=== PATIENT | male | born 1965 | race Caucasian/White ===

== ENCOUNTER 2023-11-09 00:35 | Emergency (ER) | payer BC, SELFPAY ==
[2023-11-09 00:41] VITALS: BP 138/82
[2023-11-09 01:28] LABS: % Basophils 1.5 % (0-2); % Immature Granulocytes 0.5 % (0-0.5); % Lymphocytes 35.8 % (20.5-51.1); % Monocytes 9.8 % (1.7-9.3); % Neutrophils 50.4 % (42.2-75.2); Absolute Basophils 0.1 10^3/uL (0-0.2); Absolute Eosinophils 0.1 10^3/uL (0-0.7); Absolute Lymphocytes 1.4 10^3/uL (1.2-3.4); Absolute Monocytes 0.4 10^3/uL (0.1-0.6); Hematocrit 38.3 % (39.0-52.0); Hemoglobin 13.9 g/dL (13.0-18.0); Mean Corp Hgb Conc. 36.3 g/dL (33.0-37.0); Mean Corpuscular Hgb 31.4 pg (27.0-31.0); Mean Corpuscular Volume 86.7 fL (80.0-94.0); Mean Platelet Volume 9.1 fL (7.4-10.4); Nucleated Red Blood Cells % 0 % (-); Platelet Count 275 10^3/uL (130-400); Red Blood Cell Count 4.42 10^6/uL (4.70-6.10); Red Cell Dist. Width 11.9 % (11.5-14.5)
[2023-11-09 01:29] VITALS: BP 130/82
--- NOTE | 2023-11-09 01:39 | ED.GENMED ---
History of Present Illness
General
Chief Complaint: Breathing Problem
Source: patient and spouse
Time Seen by Provider: 11/09/23 00:53
Travel History
Have you had any contact with someone who has COVID-19?: No
Do you have any symptoms of coronavirus? Fever > 100 degrees, chills, cough, shortness of breath, sore throat, loss of taste or smell, muscle aches, or headache?: No
History of Present Illness
History of Present Illness:
Patient presents to ED after waking up this morning with chest tightness and shortness of breath, along with 'irregular heartbeat'. Of note, patient has had shortness of breath with exertion and chest tightness, along with irregular heartbeat over
the past 6 weeks. Patient has been evaluated by his primary care physician, and has echocardiogram as well as cardiology consultation scheduled for this upcoming week. Denies fever or chills. Denies diaphoresis. Denies nausea or vomiting.
Denies dizziness. Denies recent travel or surgery. Denies back pain. Denies leg pain or swelling. Patient reports having had cardiac catheterization 20 years ago for similar complaint, which was normal. Patient has not had recurrent symptoms
until recently. Denies smoke drinking alcohol. There is family history of early heart disease.
Past History
Past History
ED Past Medical History: None and Other (Retention, previous DVT)
ED Past Surgical History: None
Social History
Tobacco: Former smoker
Alcohol: None
Family History
Family History: Other (Grandfather with an ND at age 50 )
Review of Systems
Review of Systems
Allergies reviewed?: Yes
All Other Systems: ROS reviewed and negative except as documented in HPI and ROS
Constitutional: Reports no symptoms
EENT: Reports no symptoms
Respiratory: Reports trouble breathing
Cardiac: Reports chest pain
ABD/GI: Reports no symptoms
: Reports no symptoms
Musculoskeletal: Reports no symptoms
Skin: Reports no symptoms
Neurological: Reports no symptoms
Phy Exam
Physical Exam
Physical Exam:
Physical Exam
General: no apparent distress, not acutely ill. afebrile
Head: nc/at. eomi
Neck: supple. no meningeal signs.
Heart: s1/s2 regular rate and rhythm, no murmur. equal radial pulses.
Lungs: no acute respiratory distress. clear bilaterally
Abdomen: normal bowel sounds. not tender.
Neuro: alert and oriented. no focal neurological deficits
Skin: no rash
Psychiatric: well kept. interactive and cooperative
Extremities: no edema. no calf tenderness.
Scores
Heart Failure Risk
Heart Failure Risk Score: Not Applicable
Heart Score for Chest Pain Patients
STEMI patient?: No
History: Slightly or Non-Suspicious
ECG: Normal
Age: >45 - <65 years
Risk Factors: 1 or 2 Risk Factors
Troponin: </= Normal Limit
Heart Score for Chest Pain Patients: 2
Heart Score Risk: 2.5% MACE over next 6 weeks
Course
Orders/Labs/Results
Orders:
Orders
11/09/23 00:44
EKG [Electrocardiogram (*1)] Urgent
Reason for Study: Shortness of Breath
EKG- Treatment ONCE
11/09/23 01:20
Complete Blood Count/With Diff Urgent
Comprehensive Metabolic Panel Urgent
D-Dimer Urgent
Magnesium Urgent
TSH Urgent
Troponin I Urgent
11/09/23 02:42
EKG- Treatment ONCE
11/09/23 04:30
Electrocardiogram (*1) Urgent
Reason for Study: Chest Pain
11/09/23 04:38
Troponin I Urgent
Abnormal Lab Results
11/09/23
01:20
WBC 4.0 L 10^3/uL
(4.8-10.8)
RBC 4.42 L 10^6/uL
(4.70-6.10)
Hct 38.3 L %
(39.0-52.0)
MCH 31.4 H pg
(27.0-31.0)
Monocytes % 9.8 H %
(1.7-9.3)
Glucose 182 H mg/dl
(70-99)
11/09/23 01:20
11/09/23 01:20
Vital Signs
Initial and Last Documented VS:
Initial Vital Signs
Temp Pulse Resp BP Pulse Ox
99.3 F 83 16 138/82 95
11/09/23 00:41 11/09/23 00:41 11/09/23 00:41 11/09/23 00:41 11/09/23 00:41
Last Documented Vital Signs
Temp Pulse Resp BP Pulse Ox
99.3 F 76 17 120/79 97
11/09/23 00:41 11/09/23 05:45 11/09/23 05:45 11/09/23 05:00 11/09/23 05:45
MDM/Problems Addressed
MDM/Problems Addressed:
Patient with an unremarkable workup in ED, including blood work, D-dimer, and EKG. Patient remains asymptomatic during observation. Will repeat troponin and EKG.
If negative, patient will be discharged home and follow-up with paper winder, as scheduled later this week.
*EKG
Interpreted by ED Provider?: Yes
EKG Intrepretation Date: 11/09/23
Heart Rate: 77
Rate: normal
Rhythm: sinus
[place]: normal axis
Interval: normal interval
*Critical Care Note
Total Time (30-74mins, 75-104mins- exclusive of procedures): Not Applicable
ED Attending Note
-
Portions of this chart may have been created with voice recognition software.� Occasional wrong word or��sound alike� substitutions may have occurred due to the inherent limitations of voice recognition software.
Discharge Plan
Departure
Patient Disposition: Home (Routine Discharge)
Date of Disposition: 11/09/23
Time of Disposition: 05:39
Patient with high blood pressure during this ER visit?: Yes
Discharge Problem:
Chest pain
Instructions: Chest Pain (DC)
Prescriptions:
No Action
nebivolol [Bystolic] 5 MG tablet
5 mg PO DAILY
Referrals:
Bimal Dunaway DO [Active] -
Florinda Sanchez CRNP [Family Provider] -
Activity Restrictions/Additional Instructions:
As discussed, please follow-up with referred paper winder, as already scheduled on Saturday for reevaluation. Please return to ED with worsening symptoms.
Interventions
Interventions:
*Risk Screen - Suicide Last Done: 11/09/23 00:41
*General Assessment Last Done: 11/09/23 00:41
*Neglect/Abuse Screening Last Done: 11/09/23 00:41
ED- Fall Risk Assessment Last Done: 11/09/23 01:23
*Nursing Disposition Last Done: 11/09/23 05:55
ED- Cardiac Assessment Last Done: 11/09/23 01:23
ED- Pulmonary Assessment Last Done: 11/09/23 01:23
Discharge Date and Time
Discharge Date/Time: 11/09/23 05:55
Print Language: ITALIAN
[2023-11-09 01:49] LABS: D-Dimer 0.43 ug/mlFEU (0.00-0.50)
[2023-11-09 01:56] LABS: ALT (SGPT) 21 U/L (0-50); AST (SGOT) 36 U/L (17-59); Albumin 4.6 g/dl (3.5-5.0); Alkaline Phosphatase 66 U/L (38-126); Blood Urea Nitrogen 14 mg/dl (9-20); Calcium 9.6 mg/dl (8.4-10.2); Carbon Dioxide 24 mmol/L (22-30); Chloride 106 mmol/L (98-107); Glucose 182 mg/dl (70-99); Potassium 3.9 mmol/L (3.5-5.1); Sodium 140 mmol/L (135-145); Total Bilirubin 0.9 mg/dl (0.2-1.3); Total Protein 7.7 g/dl (6.3-8.2); eGFR > 60.00
[2023-11-09 01:59] LABS: Troponin I < 0.012 ng/ml
[2023-11-09 02:00] VITALS: BP 120/72
[2023-11-09 02:19] LABS: TSH 2.41 uIU/ml (0.47-4.68)
[2023-11-09 03:00] VITALS: BP 112/71
[2023-11-09 03:15] LABS: Magnesium 2.1 mg/dl (1.6-2.3)
[2023-11-09 04:00] VITALS: BP 117/79
[2023-11-09 05:00] VITALS: BP 120/79
[2023-11-09 05:37] LABS: Troponin I < 0.012 ng/ml
== END 2023-11-09 05:55 | disposition home or self-care (01) ==
LOC: EMR 00:35
PROVIDERS: EMERGENCY PHYSICIAN Emergency Medicine; FAMILY PHYSICIAN Nurse Practitioner
DX: R07.89 Other chest pain (principal); R06.02 Shortness of breath; Z82.49 Family history of ischemic heart disease and other diseases of the circulatory system; Z86.718 Personal history of other venous thrombosis and embolism; Z87.891 Personal history of nicotine dependence
CPT/HCPCS: 99283; 80053; 83735; 84443; 84484; 85025; 85379; 93005

== ENCOUNTER → 2023-11-11 07:45 | Outpatient (REF) | payer BC, SELFPAY | LOC: HWRCS 07:45 | PROVIDERS: ATTENDING PHYSICIAN Nuclear Medicine Nuclear Cardiology; FAMILY PHYSICIAN Nurse Practitioner | DX: R06.02 Shortness of breath (principal) | CPT/HCPCS: 93306 ==

== ENCOUNTER → 2025-02-04 15:56 | Outpatient (REF) | payer BC, SELFPAY | LOC: RAD 15:56 | DX: R60.0 Localized edema (principal); M25.561 Pain in right knee | CPT/HCPCS: 93971 ==